=== PATIENT | male | born 1985 | race Caucasian/White ===

== ENCOUNTER 2019-07-23 15:28 | Outpatient (CLI) | payer BC, SELFPAY ==
--- NOTE | ~2019-07-23 | XR_ITS ---
EXAMINATION: XR chest 2V 07/23/2019 15:46 INDICATION: Cough with shortness of breath PROCEDURE: 2 view chest COMPARISON: No prior studies for comparison. FINDINGS: The lungs are clear. The cardiomediastinal silhouette is within normal limits. There are no pleural effusions. There is no pneumothorax suspected. IMPRESSION: 1: NO ACUTE CARDIOPULMONARY DISEASE. Reviewed, dictated and finalized at location A.
== END 2019-07-23 15:29 | disposition home or self-care (01) ==
PROVIDERS: PCP Family Medicine; Visit Provider Family Medicine
DX: R05 Cough (principal)
CPT/HCPCS: 71046

== ENCOUNTER 2019-08-03 08:40 | Outpatient (CLI) | payer BC, SELFPAY | END 2019-08-03 08:41 | disposition home or self-care (01) | PROVIDERS: PCP Family Medicine; Visit Provider Family Medicine | DX: R05 Cough (principal) | CPT/HCPCS: 94060; 94726; 94729; 95012 ==

== ENCOUNTER 2022-07-06 19:20 | Emergency (ER) | payer OTHER, SELFPAY ==
--- NOTE | ~2022-07-06 | XR_ITS ---
EXAM: XR ankle RT min 3V DATE: 07/06/2022 19:41 HISTORY: FALL FROM LADDER. RIGHT ANKLE PAIN. . COMPARISON: None available. FINDINGS: Normal mineralization. Loss of Boehler's angle. Comminuted fracture of the calcaneus with fracture lines extending to the superior and posterior cortical surfaces in the lateral view. No lyti c or blastic lesion. Joint spaces are maintained. No erosion or periosteal change. Soft tissues withi n normal limits. IMPRESSION: Depression type right calcaneal fracture. Reviewed, dictated and finalized at location K.
[2022-07-06 19:24] VITALS: BP 144/85; PULSE 78; TEMP 35.5; O2SAT 96
[2022-07-06 19:38] VITALS: BP 144/89; PULSE 79; RESP 22; TEMP 35.6; O2SAT 97
[2022-07-06] MEDS: KETOROLAC (*BKC) 60 MG/2 ML VIAL IM (19:52)
--- NOTE | 2022-07-06 20:14 | WC.ED.TRAUMA ---
HPI - Trauma General Chief Complaint: Trauma Stated Complaint: Fall Source: patient and family Mode of arrival: ambulatory Limitations: no limitations History of Present Illness HPI narrative: this is a 37-year-old male that was on a ladder earlier this afternoon and fell off approximately 10ft landing on his right heel causing severe pain and swelling has decreased range of motion secondary to pain and swelling, he rates his pain level at around 10/10 has no other injuries no neurological deficits no loss of consciousness, no head or neck injury no back or spine injury no hip or knee injuries. complaint: fall Onset (ago): hour(s) Loss of Consciousness: no Location: other Location - Extremities: Right: foot ( heel injury and pain) Severity: severe Severity scale (1-10): 10 Context: fall Associated symptoms: denies other symptoms Related Data Home Medications Medication Instructions Recorded Confirmed omeprazole 20 mg capsule,delayed 20 mg PO DAILY 07/06/22 07/06/22 release venlafaxine 75 mg capsule,extended 75 mg PO DAILY 07/06/22 07/06/22 release 24 hr Allergies Allergy/AdvReac Type Severity Reaction Status Date / Time Sulfa (Sulfonamide Allergy Hives Verified 07/06/22 19:37 Antibiotics) Review of Systems Review of Systems: All systems reviewed & are unremarkable except as noted in HPI and below PMFSH Past Medical History Medical History Right calcaneal fracture Exam Const: General: healthy appearing Nutritional Appearance: well nourished Orientation/consciousness: patient oriented x3 Limitations: no limitations HENMT: Head: normal to inspection Eyes: Conjunctivae: conjunctivae normal Pupils: Equal, round and reactive pupils present Neck: Neck: normal visual inspection Chest: Chest palpation & inspection: normal inspection of the chest Resp: Effort & Inspection: normal respiratory effort Cardio: Rate: regular rate Rhythm: regular rhythm GI: GI Palp: Yes Soft to palpation Auscultation: normal bowel sounds : General: Yes bladder normal to palpation Urinary Catheter: Urinary Catheter: patent and draining Back/Spine/Pelvis: Back: no CVA tenderness Skin: General skin exam: normal color Rashes: no rashes Neuro: General: patient oriented x3 Cranial nerves: Yes Nystagmus not present Extrem: General: normal to inspection and edema Other: tenderness right heel with movement palpation Psych: Mental Status: mental status grossly normal Affect: normal affect Course Course Emergency Course: patient received 60mg IM Toradol with some minimal pain relief, and additional 4mg of morphine IM was given which gave the patient moderate pain relief x-ray performed shows a comminuted calcaneal fracture on the right. Discussed this with Ortho and arrange for outpatient appointment. Vital Signs Vital signs: Vital Signs Temperature 35.5 C L 07/06/22 19:24 Pulse Rate 78 07/06/22 19:24 Blood Pressure 144/85 H 07/06/22 19:24 Pulse Oximetry 96 07/06/22 19:24 Oxygen Delivery Room Air 07/06/22 19:24 Temperature 35.6 C L 07/06/22 19:38 Pulse Rate 79 07/06/22 19:38 Respiratory Rate 22 H 07/06/22 19:38 Blood Pressure 144/89 H 07/06/22 19:38 Pulse Oximetry 97 07/06/22 19:38 Oxygen Delivery Room Air 07/06/22 19:38 Critical Care Time Critical Care Time Critical Care Time: No Discharge Plan Discharge Clinical Impression: Closed right calcaneal fracture Qualifiers: Encounter type: initial encounter Calcaneus location: body Fracture alignment: nondisplaced Qualified Code(s): S92.014A - Nondisplaced fracture of body of right calcaneus, initial encounter for closed fracture Patient Disposition: Home, Self-Care Condition: Stable Instructions: Antibiotic Form, Calcaneal Fracture (ED) Additional Instructions: advised to take medicine as prescribed and follow up Ortho for f
[2022-07-06] MEDS: MORPHINE SULFATE (*CRX) 4 MG/ML INJ IM (20:23)
--- NOTE | 2022-07-06 20:37 | PC.NURSE ---
orthopedic boot applied to right foot. pt informed that the ER can not provide crutches but they can be obtained from their pharmacy.
--- NOTE | 2022-07-06 21:15 | PC.NURSE ---
right boot removed and OCL applied
[2022-07-06 21:32] VITALS: BP 124/107; PULSE 76; RESP 22; TEMP 36.1; O2SAT 96
== END 2022-07-06 21:35 | disposition home or self-care (01) ==
PROVIDERS: Emergency Provider Emergency Medicine; PCP Family Medicine
DX: S92.014A Nondisplaced fracture of body of right calcaneus, initial encounter for closed fracture (principal); W17.89XA Other fall from one level to another, initial encounter
CPT/HCPCS: 73610; 96372; 99284; J1885; J2270; L2112